=== PATIENT | female | born 1985 | race Caucasian/White ===

== ENCOUNTER 2024-03-08 01:05 | Emergency (ER) | payer BC ==
[~2024-03-08] VITALS: Ht 167.6 cm; Wt 50.0 kg
[2024-03-08 01:12] VITALS: O2SAT 100
[2024-03-08] MEDS: SODIUM CHLORIDE 0.9% 1,000 ML IV ONE (02:15)
[2024-03-08 02:19] VITALS: TEMP 97.9
[2024-03-08 04:09] VITALS: BP 92/63; PULSE 63; RESP 16
== END 2024-03-08 04:15 | disposition home or self-care (01) ==
LOC: ER 01:21
DX: R00.2 Palpitations (principal); K21.9 Gastro-esophageal reflux disease without esophagitis
CPT/HCPCS: 99283; 96360; J7030